=== PATIENT | male | born 1930 | race Caucasian/White ===

== ENCOUNTER → 2017-02-17 | Outpatient (CLI) | payer MEDICARE ==
[2017-02-17 14:30] LABS: Basophils # (A) 0.1 k/uL (0-0.2); Basophils % (A) 1 %; CH 31.8; CHCM 32.7; Eosinophils # (A) 0.4 k/uL (0-0.7); Eosinophils % (A) 5 %; HCT 42.2 % (39.0-53.0); HDW 2.04; HGB 13.7 gm/dL (13.0-17.5); Luc # (Auto) 0.24; Luc % (Auto) 4; Lymphocytes # (A) 1.1 k/uL (1.0-4.8); Lymphocytes % (A) 17 %; MCH 31.6 pg (25.0-35.0); MCHC 32.4 g/dL (31.0-37.0); MCV 97.6 fL (80.0-100.0); Mean Platelet Volume 7.3; Monocytes # (A) 0.5 k/uL (0-1.0); Monocytes % (A) 7 %; Neutrophils # (A) 4.5 k/uL (1.3-7.7); Neutrophils % (A) 66 %; RBC 4.33 m/uL (4.30-5.90); RDW 12.1 % (11.5-15.5); WBC 6.8 k/uL (3.8-10.6); WBC (Perox) 7.43
[2017-02-17 14:45] LABS: Anion Gap 9 mmol/L; Blood Urea Nitrogen 40 mg/dL (9-20); Calcium 9.2 mg/dL (8.4-10.2); Carbon Dioxide 31 mmol/L (22-30); Chloride 101 mmol/L (98-107); Glucose 89 mg/dL (74-99); Non-African American GFR(MDRD) 55 (>60 ml/min/1.73 sqM); Sodium 141 mmol/L (137-145)
== END ==
LOC: LABWHC1 14:06
PROVIDERS: ATTEND Internal Medicine Clinical Cardiac Electrophysiology
DX: I25.5 Ischemic cardiomyopathy (principal); I50.22 Chronic systolic (congestive) heart failure; I44.7 Left bundle-branch block, unspecified
CPT/HCPCS: 36415; 80048; 85025

== ENCOUNTER 2017-02-28 11:03 | Day surgery (SDC) | payer MEDICARE ==
[2017-02-24 08:25] VITALS: BMI 23.7
[~2017-02-28 11:03] MED LIST: HYDROmorphone 1 MG/ML 1 ML SYRINGE IVP PRN; LACTATED RINGERS 1,000 ML IV SCH; MIDAZOLAM 2 MG/2 ML VIAL IV PRN; SODIUM CHLORIDE 0.9% 1,000 ML IV SCH; ceFAZolin 1,000 MG in SODIUM CHLORIDE 0.9% IRRIGATIO 250 ML IRRIGATION ONE; ceFAZolin 2 GM in SODIUM CHLORIDE 0.9% 100 ML IVPB ONE
[2017-02-28] MEDS ORDERED: LIDOCAINE 1% INJ 10MG/ML (20 ML MDV) SQ ONE (13:18)
[2017-02-28] MEDS ORDERED: PROPOFOL 10 MG/ML 20 ML VIAL IV ONE (13:36)
[2017-02-28] MEDS ORDERED: fentaNYL (PF) 50 MCG/ML 2 ML AMP ONE (13:36)
[2017-02-28] MEDS ORDERED: MIDAZOLAM 2 MG/2 ML VIAL ONE (13:36)
[2017-02-28] MEDS ORDERED: PHENYLEPHRINE-0.9% NACL SYG 1 MG/10 ML SYRINGE ONE (13:36)
[2017-02-28] MEDS ORDERED: SODIUM CHLORIDE 0.9% 1,000 ML IV ONE (13:38)
[2017-02-28] MEDS: IODIXANOL 320 MG/ML 100 ML IV ONE ×2 (13:57→14:53)
[2017-02-28] MEDS ORDERED: IOHEXOL 350 MG/ML 50ML BOTTLE INJ ONE (14:40)
[2017-02-28] MEDS ORDERED: ACETAMINOPHEN TAB 325 MG TAB PO PRN (16:13)
[2017-02-28] MEDS ORDERED: HYDROcodone/APAP 5-325MG 1 EACH TAB PO PRN (16:13)
[2017-02-28] MEDS ORDERED: ACETAMINOPHEN IV (For NPO) 1,000 MG in EMPTY BAG 1 BAG IVPB ONE (17:00)
--- NOTE | 2017-02-28 17:14 | PCN ---
DATE OF PROCEDURE: 02/28/2017 Mr. Rodriguez is a patient of Dr. Colbert who was referred for evaluation and management of progressive heart failure. His ejection fraction is 30% to 35%. Ischemic cardiomyopathy of a chronic nature despite appropriate medical treatment. He complains of progressive tiredness and fatigue. Underlying left bundle branch block with a QRS width that on repeat measurement today was 180 ms. He is brought in for a biventricular pacemaker implantation. The gentleman does not want an ICD. Patient was brought to the EP lab in a fasting state. Written informed consent was obtained prior to the procedure. The left shoulder area was prepped and draped as per protocol. Lidocaine 1% was used for local anesthesia. A 4 cm incision was made parallel to the deltopectoral groove about 1.5 cm medial to it. The incision was carried down to the level of the pectoralis muscle. A subfascial pocket was made. Hemostasis was assured. The left axillary vein was accessed at 3 separate points under fluoroscopy, and via appropriate-sized introducer sheaths, 3 leads were positioned. The atrial lead was a tined lead 52 cm Ingevity MRI IS1 bipolar lead, model #7736, serial #[id number]. This was positioned in the right atrial appendage. The P waves were 4.4 mV, pacing threshold 0.8 v at 0.4 ms, pacing impedance 675 ohms. Ten-volt test was negative. The RV lead was a tined lead positioned in the RV apex. This was an Ingevity MRI bipolar passive RV lead, 59 cm in length and model #7732 and serial #[id number]. This was positioned in the RV apex. R waves were 23.3 mV, pacing threshold 0.5 v at 0.4 ms, pacing impedance 930 ohms. Ten-volt test was negative. Ten-volt test was also negative for the right atrial lead. The LV lead was positioned in the anterolateral/lateral vein. The sensing was 7.7 mV. The pacing threshold for LV ring 2-LV 3 ring was 0.9 v at 0.4 ms, pacing impedance of 1196 ohms. There was noncapture at 5 v at 0 for LV-1-2 poles, but capture for LV 2-3 and LV 3-4. Diaphragmatic stem was noted when LV tip was included in the configuration. Later the best threshold was obtained with a better combination of LV 2-RV. LV 3-RV showed noncapture. The narrowest QRS configuration was noted with simultaneous pacing LV 2-RV ring. The device was then connected and was secured to the underlying pectoralis muscle. This was a Valitude X4, model #U128, serial #[id number]. The LV lead was a [employer] Acuity X4 spiral L quadripolar lead, 86 cm in length, passive, model #4677, serial #[id number]. The device was then programmed to DDR 60 to 120 ppm with an AV delay of 120 ms and simultaneous pacing between LV ring to RV. Patient tolerated the procedure well without any acute complications. PLAN: Continue current medications. Patient was given the appropriate instructions. RESULT: Successful biventricular pacing. There was shortening of the paced QRS in the programmed configuration from 180 ms, which was noted at baseline, to 144 ms. However, with progressive LV offset it was noted that the QRS continued to widen, although the maximum QRS width was noted at minus 60 to minus 70 ms offset and was about 165 ms, still better than the intrinsic QRS width. The narrowest QRS was noted with simultaneous pacing of 144 ms, and this is what was programmed.
[2017-02-28] MEDS: CARVEDILOL 3.125 MG TAB PO SCH (18:08)
[2017-02-28] MEDS: SACUBITRIL/VALSARTAN 24 MG-26 MG TABLET PO SCH (20:29)
[2017-02-28] MEDS: ceFAZolin 2 GM in SODIUM CHLORIDE 0.9% 100 ML IVPB SCH (20:29)
[2017-03-01] MEDS: ceFAZolin 2 GM in SODIUM CHLORIDE 0.9% 100 ML IVPB SCH ×3 (02:12→14:08)
--- NOTE | 2017-03-01 07:42 | XR ---
EXAMINATION TYPE: XR chest 2V DATE OF EXAM: 03/01/2017 7:07 AM COMPARISON: Chest x-ray and CT chest October 27, 2016. HISTORY: Arrhythmia status post pacemaker placement TECHNIQUE: Frontal and lateral views of the chest are obtained. FINDINGS: Sternal wires and mediastinal clips are redemonstrated. There is no focal air space opacity , pleural effusion, or pneumothorax seen. Slightly elevated left hemidiaphragm is redemonstrated. The cardiac silhouette size is within normal limits. There is new triple lead pacemaker with leads in ri ght atrium, right ventricle, and coronary sinus. Atherosclerotic change in the thoracic aorta is agai n seen. Some multilevel spurring in thoracic spine is present. IMPRESSION: New triple lead pacemaker without evidence of complication related to pacemaker placement .
[2017-03-01] MEDS: SACUBITRIL/VALSARTAN 24 MG-26 MG TABLET PO SCH (08:33)
[2017-03-01] MEDS: CARVEDILOL 3.125 MG TAB PO SCH (08:33)
[2017-03-01 08:58] VITALS: TEMP 97.6
[2017-03-01] MEDS ORDERED: FUROSEMIDE 40 MG TAB PO SCH (09:00)
[2017-03-01] MEDS ORDERED: CITALOPRAM HYDROBROMIDE 20 MG TAB PO SCH (09:00)
[2017-03-01] MEDS ORDERED: ASPIRIN 81 MG CHEW PO SCH (09:00)
[2017-03-01] MEDS ORDERED: ATORVASTATIN 40 MG TAB PO SCH (09:00)
[2017-03-01 12:26] VITALS: BP 129/61; PULSE 76; RESP 16
[2017-03-01] MEDS ORDERED: SPIRONOLACTONE 25 MG TAB PO SCH (12:30)
--- NOTE | 2017-03-01 13:16 | P.DS ---
Providers Attending physician: Luis Holland Primary care physician: [place] [facility] Course: Patient is doing well post implantation of a biventricular pacemaker, [employer]pirics He denies any chest discomfort shortness of breath dizziness or lightheadedness at this time. There is minimal swelling over the pacemaker generator site. Afebrile 97.6, pulse rate 76, blood pressure 129/61 mmHg No JVD Heart sounds are normal normal S1 normal S2 no S3 gallop Breath sounds are normal no rhonchi no crackles No lower extremity edema Abdomen soft nontender Impression Severe ischemic cardio myopathy ejection fraction 30-35%, chronic systolic dysfunction Progressive heart failure with worsening tiredness fatigue and shortness of breath on exertion Despite guideline directed medical treatment CAD, status post CABG in the past Left bundle branch block with a QRS width measured at 180 ms in the EP lab Status post successful biventricular pacemaker implant, patient did not wish to have a biventricular ICD Normal device function, chest x-ray reviewed Also complains of recurrent dizzy spells even after reducing the dose of carvedilol He takes imipramine 50 mrem today as well as citalopram I would recommend reducing the dose of imipramine for now and perhaps even stopping it completely and using an alternative Sleep-Aid. Thereafter consider increasing carvedilol dose Discharge home after completion of IV antibiotics Follow-up in the device clinic in 5 days All device related instructions given Follow with Dr. Colbert and Dr. Mccoy Patient Condition at Discharge: Stable Plan - Discharge Summary New Discharge Prescriptions: Imipramine [Tofranil] 25 mg PO DAILY #1 tablet Discharge Medication List Atorvastatin [Lipitor] 40 mg PO Q48H 10/27/16 [History] Citalopram Hydrobromide 20 mg PO DAILY 10/27/16 [History] Furosemide [Lasix] 40 mg PO DAILY 10/27/16 [History] Aspirin 81 mg PO DAILY chew 10/29/16 [Rx] Carvedilol [Coreg] 3.125 mg PO BID 02/24/17 [History] Sacubitril/Valsartan [Entresto 24 mg-26 mg Tablet] 1 each PO BID 02/24/17 [ History] Spironolactone [Aldactone] 12.5 mg PO W/LUNCH 02/24/17 [History] Imipramine [Tofranil] 25 mg PO DAILY #1 tablet 03/01/17 [Rx] Activity/Diet/Wound Care/Special Instructions: PATIENT EDUCATION MATERIAL Instructions following a heart rhythm device implant. 1. Keep dressing DRY for ONE week. You may cover the area with Saran or Cling Wrap, prior to a shower. 2. The dressing will be removed after one week in the Device Clinic @ [facility]. Absorbable sutures were used to close the wound. 3. Avoid raising the [left] arm above the shoulder level. [6 week restriction] 4. Avoid arm movements, like backscratching, rubbing the head, or pulling on a cord. (6 weeks restriction) 5. Gentle range of motion movements of the shoulder, closest to the incision should be performed to avoid a frozen shoulder. (Pendulum exercises of the shoulder) 6. The opposite arm may be used freely. 7. Avoid driving for 7 days. 8. Avoid activities such as golfing, swimming, weed whacking, lifting more than 10 pounds weight, bowling, gymnastics and weight training/lifting. (6 weeks restriction) 9. Activities such as wood chopping with an axe, pull-ups in the gymnasium, power lifting, arc-welding, being close to home induction cooktops will always be a problem. In case of any problems, please call [facility], Stevan Ribera, @ [phone], Attention: Device Clinic Follow-up in the device clinic in 5 days, follow with Dr. Colbert in a month No changes in medications Consider stopping imipramine or reducing the dose Also consider reducing the dose of citalopram especially in combination with imipramine
== END 2017-03-01 15:55 | disposition home or self-care (01) ==
LOC: CATHCVL 11:03 → 3OBS 15:46 → CATHCVL 03-01 15:55
PROVIDERS: ATTEND Internal Medicine Clinical Cardiac Electrophysiology
DX: I11.0 Hypertensive heart disease with heart failure (principal); I50.22 Chronic systolic (congestive) heart failure; I25.5 Ischemic cardiomyopathy; I25.119 Atherosclerotic heart disease of native coronary artery with unspecified angina pectoris; Z95.1 Presence of aortocoronary bypass graft; I44.7 Left bundle-branch block, unspecified; I70.0 Atherosclerosis of aorta; E78.00 Pure hypercholesterolemia, unspecified; E78.5 Hyperlipidemia, unspecified; I25.2 Old myocardial infarction; Z82.49 Family history of ischemic heart disease and other diseases of the circulatory system; K21.9 Gastro-esophageal reflux disease without esophagitis; M19.90 Unspecified osteoarthritis, unspecified site; Z79.82 Long term (current) use of aspirin; Z79.899 Other long term (current) drug therapy; Z88.8 Allergy status to other drugs, medicaments and biological substances; Z72.0 Tobacco use
CPT/HCPCS: 33225; 33208; 84439; 84443; 71020; C1730; C1892 ×2; C1769 ×2; C1898; C2621; C1900; J2250; Q9967; J0690 ×3; J2001; J3010; J2370; J2704

== ENCOUNTER 2019-05-24 16:36 | Observation (INO) | payer MEDICARE ==
[2019-05-24] MEDS ORDERED: ACETAMINOPHEN TAB 325 MG TAB PO PRN (18:58)
[2019-05-24] MEDS ORDERED: IPRATROPIUM-ALBUTEROL 3 ML NEB INHALATION PRN (18:58)
[2019-05-24] MEDS ORDERED: HEPARIN SOD,PORK IN 0.45% NACL 25,000 UNIT in 0.45% NACL 1 250ML.BAG IV SCH (19:00)
--- NOTE | 2019-05-24 19:20 | XR ---
EXAMINATION TYPE: XR chest 1V portable DATE OF EXAM: 05/24/2019 COMPARISON: 03/01/2017 HISTORY: Chest pain TECHNIQUE: Single frontal view of the chest is obtained. FINDINGS: Heart is normal. Lungs are clear. Costophrenic angles are clear. There is left axillary pa cemaker. There are sternal wires. IMPRESSION: No active cardiopulmonary disease. Normal heart. No change.
[2019-05-24 20:14] LABS: D-Dimer 0.87 mg/L FEU (<0.60); INR 1.1 (<1.2); Partial Thromboplastin Time 26.5 sec (22.0-30.0); Prothrombin Time 11.6 sec (9.0-12.0)
[2019-05-24 20:36] LABS: Creatine Kinase MB 2.4 ng/mL (0.0-2.4); Troponin I <0.012 ng/mL (0.000-0.034)
[2019-05-24] MEDS: SACUBITRIL/VALSARTAN 24 MG-26 MG TABLET PO SCH (20:57)
[2019-05-24] MEDS: MELATONIN 3 MG TABLET PO SCH (20:57)
[2019-05-24 21:23] LABS: Potassium 4.1 mmol/L (3.5-5.1)
--- NOTE | 2019-05-24 22:13 | CT ---
EXAMINATION TYPE: CT angio chest DATE OF EXAM: 05/24/2019 10:00 PM COMPARISON: 10/27/2016 HISTORY: SOB, elevated d-dimer CT DLP: 312.3 mGycm Automated exposure control for dose reduction was used. CONTRAST: CTA scan of the thorax is performed with IV Contrast, patient injected with 70 mL of Isovue 370, pulm onary embolism protocol. . There are 3-D post processed images. FINDINGS: Lungs are clear of consolidation. There is minimal pleural thickening in the posterior lung brooks. T here is no pleural effusion. Heart size is normal. There is no pericardial effusion. There is normal contrast opacification of the pulmonary arteries. I see no filling defect. Thoracic aorta is atheromatous. There is no aneurysm or dissection. There is no mediastinal adenopath y. There are no hilar masses. There are calcified granulomata in the mediastinum. There is spurring in the thoracic spine. There are sternal wires. The ribs appear intact. Impression No evidence of pulmonary embolism. There is clearing of the bilateral pleural effusions compared to o ld exam. : MULTIPLE CALCIFIED GALLSTONES NOTED. BILATERAL RENAL CORTICAL CYSTS NOTED. ATHEROSCLEROTIC VASCULAR D ISEASE.
[2019-05-25] MEDS ORDERED: ACETAMINOPHEN TAB 325 MG TAB PO PRN (10:00)
[2019-05-25] MEDS: CITALOPRAM HYDROBROMIDE 10 MG TAB PO SCH (10:32)
[2019-05-25] MEDS: SACUBITRIL/VALSARTAN 24 MG-26 MG TABLET PO SCH ×2 (10:32→19:47)
[2019-05-25] MEDS: CARVEDILOL 12.5 MG TAB PO SCH ×2 (10:32→17:30)
[2019-05-25] MEDS: ASPIRIN 81 MG PO SCH (10:32)
[2019-05-25] MEDS: FUROSEMIDE 40 MG TAB PO SCH (10:34)
[2019-05-25] MEDS: LEVOTHYROXINE 50 MCG TAB PO SCH (10:34)
--- NOTE | 2019-05-25 10:53 | P.CRDCN ---
History of Present Illness History of present illness: This is Dr. Holland dictating a consult on this patient The patient was interviewed and examined by me IMPRESSION / ASSESSMENT: Shortness of breath on exertion for the last 2-3 weeks associated with some mid chest discomfort/tightness with the first cut he can sign is normal Biventricular paced rhythm biventricular pacemaker implantation Known cardiac myopathy with left bundle branch block QRS width of 180 ms, reduced LV systolic function ischemic cardio myopathy PLAN: Restart home medications and maximize heart failure medications Continue IV Lasix and stop it if 3 chronic enzymes are normal HPI The last several weeks patient has been complaining of increasing shortness of breath with exertion and some chest tightness mid chest He is a patient of Dr. Colbert and has been taking his medications regularly Yesterday he went to [facility] and then was transferred here ROS: No fever chills or rigors, no cough, phlegm or expectoration, no nausea, vomiting or diarrhea, no hematuria, dysuria, no musculoskeletal complaints, no strokes or seizures, no skin lesions. EXAMINATION: On examination blood pressure is 167/78 and 179/82 mmHg Afebrile Pulse rate in the 70s normal respirations nonlabored No orthopnea no PND by history Looks very comfortable no chest discomfort at this time Heart sounds are soft and regular normal S1 normal S2 no murmurs no gallops no rub Breath sounds are clear no rhonchi no crackles Abdomen soft nontender Extremities warm no edema REVIEW OF LABS, ECG & MEDICAL DATA D-dimer 0.87 electrolytes normal BUN 31 creatinine 1.13 first troponin is normal magnesium normal Twelve-lead ECG shows a biventricular paced rhythm No evidence for pulmonary embolus Past Medical History Past Medical History: Atrial Flutter, Chest Pain / Angina, Heart Failure, Hypertension, Myocardial Infarction ([place]) Additional Past Medical History / Comment(s): Other HX: R hand missing index and middle finger from industrial accident, mild bilateral cataracts. SILENT [place](DATE UNK) Last Myocardial Infarction Date:: unknown History of Any Multi-Drug Resistant Organisms: None Reported Past Surgical History: Heart Catheterization, Orthopedic Surgery Additional Past Surgical History / Comment(s): 2002 Cabg with 5 vessel bypass, R caratid endarectomy, colonoscopy showed large polyp which was removed and then pt had a bleed WENT FOR abdominal surgery to repair that bleed. L shoulder arthroscopy/r rotator cuff repair. Past Anesthesia/Blood Transfusion Reactions: No Reported Reaction Additional Past Anesthesia/Blood Transfusion Reaction / Comment(s): Pt has recieved blood without reaction. Past Psychological History: Depression Additional Psychological History / Comment(s): Pt lives alone. His April 07, 2014. Pt does have depression and takes medication.pt stated feels well maintained by meds. Pt is independent-currently weak and norberto stated pt has had some falls . He drives a car. Pt's norberto is very helpful if pt needs anything. Smoking Status: Former smoker Past Alcohol Use History: Rare Additional Past Alcohol Use History / Comment(s): started smoking in 1969, quit 1973 Past Drug Use History: None Reported - Past Family History Brother(s) Family Medical History: Cancer Father Family Medical History: Cancer Additional Family Medical History / Comment(s): . Mother Family Medical History: Congestive Heart Failure (CHF), Coronary Artery Disease (CAD) Additional Family Medical History / Comment(s): Mother from CHF Medications and Allergies Home Medications Medication Instructions Recorded Confirmed Type Atorvastatin [Lipitor] 40 mg PO Q48H 10/27/16 05/24/19 History Furosemide [Lasix] 40 mg PO DAILY 10/27/16 05/24/19 History Aspirin 81 mg PO DAILY chew 10/29/16 05/24/19 Rx Sacubitril/Valsartan [Entresto 24 1 tab PO BID 02/24/17 05/24/19 History mg-26 mg Tablet] Spironolactone [Aldactone] 12.5 mg PO W/LUNCH 02/24/17 05/24/19 History Acetaminophen Tab [Tylenol Tab] 650 mg PO Q6H PRN 05/24/19 05/24/19 History Carvedilol [Coreg] 12.5 mg PO BID 05/24/19 05/24/19 History Citalopram Hydrobromide [CeleXA] 30 mg PO DAILY 05/24/19 05/24/19 History Levothyroxine Sodium [Synthroid] 50 mcg PO DAILY 05/24/19 05/24/19 History Allergies Allergy/AdvReac Type Severity Reaction Status Date / Time No Known Allergies Allergy Verified 05/24/19 18:58 Physical Exam Vitals: Vital Signs Temp Pulse Resp BP BP Pulse Ox 05/25/19 08:00 18 05/25/19 07:00 97.7 F 73 18 179/82 97 05/25/19 04:00 97.5 F L 76 16 167/78 98 05/24/19 23:00 98.2 F 75 16 110/60 99 05/24/19 19:10 98.3 F 77 16 154/74 99 Intake and Output 05/24/19 05/25/19 05/25/19 22:59 06:59 14:59 Intake Total 120 Balance 120 Intake: Oral 120 Other: Voiding Method Toilet # Voids 1 1 Weight 66 kg Results 05/24/19 19:45 Cardiac Enzymes 05/24/19 Range/Units 19:45 CK-MB (CK-2) 2.4 (0.0-2.4) ng/mL Troponin I <0.012 (0.000-0.034) ng/mL Coagulation 05/24/19 05/25/19 Range/Units 19:45 01:25 PT 11.6 (9.0-12.0) sec APTT 26.5 48.1 H (22.0-30.0) sec Comprehensive Metabolic Panel 05/24/19 Range/Units 19:45 Sodium 139 (137-145) mmol/L Potassium 4.1 (3.5-5.1) mmol/L Chloride 104 (98-107) mmol/L Carbon Dioxide 27 (22-30) mmol/L BUN 31 H (9-20) mg/dL Creatinine 1.13 (0.66-1.25) mg/dL Glucose 167 H (74-99) mg/dL Calcium 9.0 (8.4-10.2) mg/dL Current Medications Generic Name Dose Route Start Last Admin Trade Name Freq PRN Reason Stop Dose Admin Acetaminophen 650 mg 05/24/19 18:58 Tylenol Tab PO Q4HR PRN Fever and/ or Pain Albuterol/Ipratropium 3 ml 05/24/19 18:58 Duoneb 0.5 Mg-3 Mg/3 Ml Soln INHALATION RT-Q2H PRN Shortness Of Breath Or Wheezing Aspirin 81 mg 05/25/19 10:15 05/25/19 10:32 Aspirin PO 81 mg DAILY RAJAN Administration Atorvastatin Calcium 40 mg 05/25/19 11:00 05/25/19 10:32 Lipitor PO 40 mg Q48H RAJAN Administration Carvedilol 12.5 mg 05/25/19 10:15 05/25/19 10:32 Coreg PO 12.5 mg BID-W/MEALS RAJAN Administration Citalopram Hydrobromide 30 mg 05/25/19 10:15 05/25/19 10:32 Celexa PO 30 mg DAILY RAJAN Administration Furosemide 40 mg 05/25/19 10:15 05/25/19 10:34 Lasix PO 40 mg DAILY RAJAN Administration Levothyroxine Sodium 50 mcg 05/25/19 10:15 05/25/19 10:34 Synthroid PO 50 mcg DAILY@0630 RAJAN Administration Melatonin 3 mg 05/24/19 21:00 05/24/19 20:57 Melatonin PO 3 mg HS RAJAN Administration Sacubitril/Valsartan 1 each 05/24/19 21:00 05/25/19 10:32 Entresto 24 Mg-26 Mg Tablet PO 1 each BID RAJAN Administration Spironolactone 12.5 mg 05/25/19 12:30 05/25/19 10:32 Aldactone PO 12.5 mg W/LUNCH RAJAN Administration Intake and Output 05/24/19 05/25/19 05/25/19 22:59 06:59 14:59 Intake Total 120 Balance 120 Intake: Oral 120 Other: Voiding Method Toilet # Voids 1 1 Weight 66 kg 05/24/19 19:45
[2019-05-25] MEDS ORDERED: ATORVASTATIN 40 MG TAB PO SCH (11:00)
[2019-05-25] MEDS ORDERED: SPIRONOLACTONE 25 MG TAB PO SCH (12:30)
--- NOTE | 2019-05-25 16:14 | P.HPIM ---
History of Present Illness Chief Complaint: shortness of breath and chest tightness This is a pleasant 69-year-old gentleman with a past medical history significant for CABG, comes in with above-mentioned complaint. The patient says that he's been having shortness of breath for the past few weeks. Yesterday he was doing some yard work when he started having more shortness of breath. He did not complain of any radiation of the pain, no nausea and vomiting, no diarrhea constipation, no tingling numbness of his extremities, and additional rash. He came into the [facility] ER to get himself evaluated. He had EKG done which was negative, tropes were negative. 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 SILENT M I(DATE UN) Last Myocardial Infarction Date:: unknown History of Any Multi-Drug Resistant Organisms: None Reported Past Surgical History: Heart Catheterization, Orthopedic Surgery Additional Past Surgical History / Comment(s): 2002 Cabg with 5 vessel bypass, R caratid endarectomy, colonoscopy showed large polyp which was removed and then pt had a bleed WENT FOR abdominal surgery to repair that bleed. L shoulder arthroscopy/r rotator cuff repair. Past Anesthesia/Blood Transfusion Reactions: No Reported Reaction Additional Past Anesthesia/Blood Transfusion Reaction / Comment(s): Pt has recieved blood without reaction. Past Psychological History: Depression Additional Psychological History / Comment(s): Pt lives alone. His April 07, 2014. Pt does have depression and takes medication.pt stated feels well maintained by meds. Pt is independent-currently weak and norberto stated pt has had some falls . He drives a car. Pt's norberto is very helpful if pt needs anything. Smoking Status: Former smoker Past Alcohol Use History: Rare Additional Past Alcohol Use History / Comment(s): started smoking in 1969, quit 1973 Past Drug Use History: None Reported - Past Family History Brother(s) Family Medical History: Cancer Father Family Medical History: Cancer Additional Family Medical History / Comment(s): . Mother Family Medical History: Congestive Heart Failure (CHF), Coronary Artery Disease (CAD) Additional Family Medical History / Comment(s): Mother from CHF Medications and Allergies Home Medications Medication Instructions Recorded Confirmed Type Atorvastatin [Lipitor] 40 mg PO Q48H 10/27/16 05/24/19 History Furosemide [Lasix] 40 mg PO DAILY 10/27/16 05/24/19 History Aspirin 81 mg PO DAILY chew 10/29/16 05/24/19 Rx Sacubitril/Valsartan [Entresto 24 1 tab PO BID 02/24/17 05/24/19 History mg-26 mg Tablet] Spironolactone [Aldactone] 12.5 mg PO W/LUNCH 02/24/17 05/24/19 History Acetaminophen Tab [Tylenol Tab] 650 mg PO Q6H PRN 05/24/19 05/24/19 History Carvedilol [Coreg] 12.5 mg PO BID 05/24/19 05/24/19 History Citalopram Hydrobromide [CeleXA] 30 mg PO DAILY 05/24/19 05/24/19 History Levothyroxine Sodium [Synthroid] 50 mcg PO DAILY 05/24/19 05/24/19 History Allergies Allergy/AdvReac Type Severity Reaction Status Date / Time No Known Allergies Allergy Verified 05/24/19 18:58 Physical Exam Vitals: Vital Signs Temp Pulse Resp BP BP Pulse Ox 05/25/19 15:37 98.0 F 73 18 126/69 98 05/25/19 12:00 82 18 05/25/19 11:52 98.2 F 82 18 122/72 98 05/25/19 08:00 18 05/25/19 07:00 97.7 F 73 18 179/82 97 05/25/19 04:00 97.5 F L 76 16 167/78 98 05/24/19 23:00 98.2 F 75 16 110/60 99 05/24/19 19:10 98.3 F 77 16 154/74 99 Intake and Output 05/25/19 05/25/19 05/25/19 06:59 14:59 22:59 Intake Total 120 Balance 120 Intake: Oral 120 Other: Voiding Method Toilet # Voids 1 1 Results CBC & Chem 7: 05/24/19 19:45 Labs: Abnormal Lab Results - Last 24 Hours (Table) 05/24/19 05/24/19 05/25/19 Range/Units 19:45 19:45 01:25 APTT 48.1 H (22.0-30.0) sec D-Dimer 0.87 H (<0.60) mg/L FEU BUN 31 H (9-20) mg/dL Glucose 167 H (74-99) mg/dL Thrombosis Risk Factor Assmnt - Choose All That Apply Each Risk Factor Represents 3 Points: Age 75 years or older Thrombosis Risk Factor Assessment Total Risk Factor Score: 3 Thrombosis Risk Factor Assessment Level: Moderate Risk
[2019-05-25 19:27] VITALS: RESP 16
[2019-05-25] MEDS: MELATONIN 3 MG TABLET PO SCH (19:47)
[2019-05-26 06:20] LABS: HCT 38.6 % (39.0-53.0); HGB 12.6 gm/dL (13.0-17.5); MCH 32.1 pg (25.0-35.0); MCHC 32.7 g/dL (31.0-37.0); MCV 98.2 fL (80.0-100.0); Platelet Count 242 k/uL (150-450); RBC 3.93 m/uL (4.30-5.90); RDW 11.9 % (11.5-15.5); WBC 10.1 k/uL (3.8-10.6)
[2019-05-26 06:31] LABS: Calcium 9.2 mg/dL (8.4-10.2)
[2019-05-26] MEDS: CITALOPRAM HYDROBROMIDE 10 MG TAB PO SCH (08:36)
[2019-05-26] MEDS: ASPIRIN 81 MG PO SCH (08:36)
[2019-05-26] MEDS: FUROSEMIDE 40 MG TAB PO SCH (08:36)
[2019-05-26] MEDS: CARVEDILOL 12.5 MG TAB PO SCH (08:36)
[2019-05-26] MEDS: LEVOTHYROXINE 50 MCG TAB PO SCH (08:36)
[2019-05-26] MEDS: SACUBITRIL/VALSARTAN 24 MG-26 MG TABLET PO SCH (08:36)
--- NOTE | 2019-05-26 08:50 | P.PN ---
Subjective Progress Note Date: 05/26/19 This is a 88-year-old gentleman with history of previous myocardial infarction, bypass surgery, history of left bundle-branch block, cardiomyopathy and congestive heart failure. Patient had a biventricular pacemaker implantation with improvement of his LV function. Patient has been doing clinically well. Over the last couple weeks, Patient has been having intermittent shortness of breath. He went to the [facility] emergency room and subsequently transferred here. Patient was seen by Dr. Holland yesterday. So far. Patient's cardiac enzymes are negative. EKGs did not reveal any acute changes. Patient seemed to be comfortable at rest. He is able to lie flat in the bed. His d-dimer is high but computed tomography scan is negative for pulmonary emboli. Chest x-ray did not reveal any evidence of CHF. We discussed the possibility of doing a cardiac cath to rule out any progression of ischemic heart disease. Patient is not interested in the procedure. We'll increase his activity and if his clinically stable, patient could be discharged home. Objective - Vital Signs Vital signs: Vital Signs Temp 97.6 F 05/26/19 04:00 Pulse 71 05/26/19 08:00 Resp 16 05/26/19 08:00 BP 165/79 05/26/19 04:00 Pulse Ox 99 05/26/19 04:00 Intake & Output 05/25/19 05/26/19 05/26/19 18:59 06:59 18:59 Intake Total 480 20 Balance 480 20 Intake: IV 20 Invasive Line 1 20 Blood Product 480 Other: Voiding Method Toilet Toilet Toilet # Voids 2 1 - Exam GENERAL EXAM: Patient is alert and oriented and doesn't appear to be in any acute distress HEENT: Normocephalic. Normal reaction of pupils, equal size, normal range of extraocular motion. No erythema or exudates in the throat. NECK: No masses, no nuchal rigidity. CHEST: No chest wall deformity. LUNGS: Equal air entry with no crackles or wheeze. HEART: S1 and S2 normal with no audible mumurs or gallops. Regular rhythm, femorals equal on both sides.. ABDOMEN: No hepatosplenomegaly, normal bowel sounds, no guarding or rigidity. SKIN: No rashes CENTRAL NERVOUS SYSTEM: No focal deficits. EXTREMITIES: No cyanosis, clubbing or edema. - Labs CBC & Chem 7: 05/26/19 05:54 05/26/19 05:54 Labs: Abnormal Lab Results - Last 24 Hours (Table) 05/26/19 05/26/19 Range/Units 05:54 05:54 RBC 3.93 L (4.30-5.90) m/uL Hgb 12.6 L (13.0-17.5) gm/dL Hct 38.6 L (39.0-53.0) % BUN 25 H (9-20) mg/dL Glucose 104 H (74-99) mg/dL Assessment and Plan (1) Exertional dyspnea Current Visit: Yes Status: Acute Code(s): R06.09 - OTHER FORMS OF DYSPNEA SNOMED Code(s): 25740127 (2) Cardiomyopathy Current Visit: Yes Status: Acute Code(s): I42.9 - CARDIOMYOPATHY, UNSPECIFIED SNOMED Code(s): 90225788 (3) Chronic ischemic heart disease Current Visit: No Status: Chronic Code(s): I25.9 - CHRONIC ISCHEMIC HEART DISEASE, UNSPECIFIED SNOMED Code(s): 248599038 (4) HTN (hypertension) Current Visit: No Status: Chronic Code(s): I10 - ESSENTIAL (PRIMARY) HYPERTENSION SNOMED Code(s): 63265305 (5) Hx of CABG Current Visit: No Status: Chronic Code(s): Z95.1 - PRESENCE OF AORTOCORONARY BYPASS GRAFT SNOMED Code(s): 644143542 (6) Hyperlipidemia Current Visit: No Status: Chronic Code(s): E78.5 - HYPERLIPIDEMIA, UNSPECIFIED SNOMED Code(s): 96130946 Plan: Patient's critical status is stable. No evidence of any pulmonary emboli or acute CHF. Patient was given the option of doing a cardiac catheterization for definitive diagnosis. Patient doesn't want to go through the procedure. Increase activity and if is stable he could be discharged home. Follow-up in the office in one week
[2019-05-26 12:13] VITALS: BP 103/63; PULSE 78; TEMP 98.5
--- NOTE | 2019-05-26 13:38 | P.DS ---
Providers Date of admission: 05/24/19 18:30 Expected date of discharge: 05/26/19 Attending physician: Abe Hill MD Consults: 05/24/19 18:56 Consult Physician Routine Consulting Provider: Hailey Colbert Consult Reason/Comments: chest pain Do you want consulting provider notified?: Yes, Notify in am Primary care physician: Abe Hill MD Hospital Course: Discharge diagnosis Shortness of breath and chest tightness, rule out angina History of CAD status post CABG Hypertension History of a flutter History of pacemaker Depression Hospital course This is a pleasant 69-year-old gentleman with a past medical history significant for CABG, comes in with above-mentioned complaint. The patient says that he's been having shortness of breath for the past few weeks. Yesterday he was doing some yard work when he started having more shortness of breath. He did not complain of any radiation of the pain, no nausea and vomiting, no diarrhea constipation, no tingling numbness of his extremities, and additional rash. He came into [facility] ER to get himself evaluated. He had EKG done which was negative, tropes were negative. He was transferred over here to [facility] as his financial services education consultant and his care is over here Patient was evaluated by cardiology and they recommended cardiac cath but the patient refused. Patient would follow with cardiology as an outpatient. On 05/26/2019 Patient says that he does not have any shortness of breath or chest pain, no racing heart, no headache, loss of vision or blurry vision. On exam, alert and oriented x3. HEENT: Conjunctivae normal. eyes normal. NECK: No JVD. No thyroid enlargement. No LNs CARDIOVASCULAR: S1-S2 positive RESPIRATION: Breath sounds diminished in the bases. No rhonchi or crackles. No bronchial breathing. ABDOMEN: Soft, nontender . No guarding. no masses palpable. No ascites, No hepatosplenomegaly.Bowel sounds heard. LEGS: No edema. no swelling NERVOUS SYSTEM: Cranial N 2-12 grossly normal. Moves all 4 limbs. No focal deficits. No sensory deficit. No signs of cerebellar dysfucntion. Skin: no ulcer no rash Patient will be discharged when cleared by cardiology He is to follow with his financial services education consultant in 1 week He is to follow with his primary care doctor in a week Patient to continue taking his home medications Patient Condition at Discharge: Stable Plan - Discharge Summary New Discharge Prescriptions: Continue Atorvastatin [Lipitor] 40 mg PO Q48H Furosemide [Lasix] 40 mg PO DAILY Aspirin 81 mg PO DAILY chew Sacubitril/Valsartan [Entresto 24 mg-26 mg Tablet] 1 tab PO BID Spironolactone [Aldactone] 12.5 mg PO W/LUNCH Levothyroxine Sodium [Synthroid] 50 mcg PO DAILY Acetaminophen Tab [Tylenol] 650 mg PO Q6H PRN PRN Reason: Fever And/ Or Pain Carvedilol [Coreg] 12.5 mg PO BID Citalopram Hydrobromide [CeleXA] 30 mg PO DAILY Discharge Medication List Atorvastatin [Lipitor] 40 mg PO Q48H 10/27/16 [History] Furosemide [Lasix] 40 mg PO DAILY 10/27/16 [History] Aspirin 81 mg PO DAILY chew 10/29/16 [Rx] Sacubitril/Valsartan [Entresto 24 mg-26 mg Tablet] 1 tab PO BID 02/24/17 [History] Spironolactone [Aldactone] 12.5 mg PO W/LUNCH 02/24/17 [History] Acetaminophen Tab [Tylenol] 650 mg PO Q6H PRN 05/24/19 [History] Carvedilol [Coreg] 12.5 mg PO BID 05/24/19 [History] Citalopram Hydrobromide [CeleXA] 30 mg PO DAILY 05/24/19 [History] Levothyroxine Sodium [Synthroid] 50 mcg PO DAILY 05/24/19 [History] Follow up Appointment(s)/Referral(s): Hailey Colbert MD [STAFF PHYSICIAN] - 1 Week Activity/Diet/Wound Care/Special Instructions: If you have any more chest pain, any racing heart, any cough or shortness breath, any loss of vision or blurry vision, any lightheadedness or dizziness, any syncope, please call 911 and come to the ER Discharge Disposition: HOME SELF-CARE
== END 2019-05-26 13:43 | disposition home or self-care (01) ==
LOC: 1SOBS 18:30
PROVIDERS: ADMIT Internal Medicine; ATTEND Internal Medicine
DX: R06.02 Shortness of breath (principal); R07.89 Other chest pain; R06.09 Other forms of dyspnea; R53.1 Weakness; Z95.0 Presence of cardiac pacemaker; I44.7 Left bundle-branch block, unspecified; I25.5 Ischemic cardiomyopathy; E78.5 Hyperlipidemia, unspecified; I48.92 Unspecified atrial flutter; I25.2 Old myocardial infarction; I25.10 Atherosclerotic heart disease of native coronary artery without angina pectoris; F32.9 Major depressive disorder, single episode, unspecified; R79.89 Other specified abnormal findings of blood chemistry; I11.0 Hypertensive heart disease with heart failure; I50.9 Heart failure, unspecified; Z89.021 Acquired absence of right finger(s); Z95.1 Presence of aortocoronary bypass graft; Z86.010 Personal history of colon polyps; Z87.891 Personal history of nicotine dependence; Z91.81 History of falling; Z79.899 Other long term (current) drug therapy; Z79.82 Long term (current) use of aspirin; Z79.890 Hormone replacement therapy; Z80.9 Family history of malignant neoplasm, unspecified; Z82.49 Family history of ischemic heart disease and other diseases of the circulatory system; Z91.19 Patient's noncompliance with other medical treatment and regimen
CPT/HCPCS: 96365; 96366 ×2; 85379; 80048 ×2; 82550; 82553; 83735; 84484 ×2; 85027; 85610; 85730 ×2; 71045; 71275; G0378 ×3; G0379; Q9967; J1644